=== PATIENT | male | born 1995 ===

== ENCOUNTER 2016-09-26 16:28 | Emergency (ER) | payer OTHER ==
[~2016-09-26] VITALS: Ht 170.2 cm; Wt 74.1 kg
[2016-09-26 16:53] VITALS: Ht 170.2 cm; Wt 74.1 kg
[2016-09-26] MEDS ORDERED: SODIUM CHLORIDE 0.9% 1000ML 1,000 ML IV STA (17:49)
[2016-09-26] MEDS ORDERED: SODIUM CHLORIDE 0.9% 1000ML 1,000 ML IV ONE (17:49)
[2016-09-26 18:29] LABS: BASO % 0.4 %; BASO ABS # 0.04 K/uL (0-0.2); COMPLETE YES; EOS % 0.3 %; HEMATOCRIT 43.5 % (42-52); IG% 0.2 %; LYMPH % 12.3 %; LYMPH ABS # 1.22 K/uL (1.2-3.4); MEAN CELL VOLUME 78.9 fL (80-100); MEAN CORPUSCULAR HEMOGLOBIN 27.2 pg (25-34); MEAN CORPUSCULAR HGB CONC 34.5 g/dl (32-36); MEAN PLATELET VOLUME 10.6 fL (7.4-10.4); MONO % 7.3 %; NEUT % 79.5 %; PLATELET COUNT 281 K/uL (130-400); RED BLOOD COUNT 5.51 M/uL (4.7-6.1); WHITE BLOOD COUNT 9.95 K/uL (4.8-10.8)
[2016-09-26] MEDS ORDERED: IBUP-103 PO (18:38)
[2016-09-26 18:47] LABS: BUN/CREATININE RATIO 17.3 (10-20); CALCIUM 9.3 mg/dl (8.5-10.1); CREATININE 0.85 mg/dl (0.60-1.40); POTASSIUM 3.4 mmol/L (3.5-5.1)
[2016-09-26 19:32] VITALS: BP 139/88; PULSE 87; TEMP 36.8; O2SAT 100
--- NOTE | 2016-09-28 17:57 | EMERGENCY ROOM VISIT NOTE ---
History Report prepared by Alexis: Rabia Hoover Under the Supervision of: Dr. Denny Alves M.D. First contact with patient: 17:38 Chief Complaint: DEHYDRATION Stated Complaint: VOMITING, INCREASED HEART RATE, TINGLY HANDS,DEHYD Nursing Triage Summary: "I have been vomiting all morning. My stomach feels like it is tiffany. This does not feel like my regular hangovers." per pt. 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 The patient states that after drinking a large quantity of alcohol last night he woke up this morning and states that he has had nausea and vomited 3 times since waking up and has been unable to keep water down. The patient states that he has since had generalized weakness, hands tingling and felt his heart pounding but denies chest pain. The patient states that he also had abdominal cramping he describes as tiffany. The patient states once arriving to the ED he has started to feel better. He denies any SOB, fevers, diarrhea, blood in vomit, or any recent trauma. 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 Patient denies blood in vomit, or any recent trauma, Review of Systems See HPI for pertinent positives & negatives. A total of 10 systems reviewed and were otherwise negative. Past Medical & Surgical Medical Problems: (1) No Known Active Medical Problems Old medical records were attempted to be reviewed but there are no old records at this hospital. Nurse's notes were reviewed and I agree with. Did have heart surgery as an infant but has had no problems since then or restrictions Family History Patient reports no known family medical history. Social History Smoking Status: Never Smoker Alcohol Use: occasionally Drug Use: none Marital Status: single Housing Status: lives with roommate Occupation Status: student Current/Historical Medications Scheduled PRN Ibuprofen Tab (Advil), 200 MG PO UD PRN for Pain or Fever Allergies Coded Allergies: Sulfa Antibiotics (Verified Allergy, Unknown, Unknown, 09/26/16) Physical Exam Vital Signs Date Time Temp Pulse Resp B/P Pulse Ox O2 Delivery O2 Flow Rate FiO2 09/26/16 19:32 36.8 87 16 139/88 100 09/26/16 19:31 87 16 139/88 100 Room Air 09/26/16 18:39 89 16 148/90 100 Room Air 09/26/16 16:53 36.8 103 18 169/93 99 Room Air Physical Exam General: Well developed well nourished young male in no acute distress, breathing comfortably on room air. Normal speech HEENT: Normal cephalic atraumatic. Pupils are equal round and reactive to light. Sclerae anicteric. Extraocular movements are intact. Oropharynx is pink with moist mucous membranes. No swelling of the mouth lips or tongue. Neck: Supple with a midline trachea. No meningeal signs or stiffness, no JVD or bruits. No Stridor. Chest: Clear to auscultation bilaterally. No wheezes or rhonchi. No increased work of breathing. Heart: regular rate and rhythm. Abdomen: Soft nontender, nondistended without rebound guarding or rigidity. Extremities: No cyanosis clubbing or edema. No calf tenderness or assymetry Spine/Back. Non tender to palpation. No CVA tenderness Skin: Good turgor without rashes. Neurologic exam: Cranial nerves two through 12 are intact. Motor and sensation are intact and symmetrical throughout. Medical Decision & Procedures Laboratory Results 09/26/16 18:15 Red Blood Count 5.51, Mean Corpuscular Volume 78.9, Mean Corpuscular Hemoglobin 27.2, Mean Corpuscular Hemoglobin Concent 34.5, Mean Platelet Volume 10.6, Neutrophils (%) (Auto) 79.5, Lymphocytes (%) (Auto) 12.3, Monocytes (%) (Auto) 7.3, Eosinophils (%) (Auto) 0.3, Basophils (%) (Auto) 0.4, Neutrophils # (Auto) 7.91, Lymphocytes # (Auto) 1.22, Monocytes # (Auto) 0.73, Eosinophils # (Auto) 0.03, Basophils # (Auto) 0.04 09/26/16 18:15 Test 09/26/16 18:15 White Blood Count 9.95 K/uL (4.8-10.8) Red Blood Count 5.51 M/uL (4.7-6.1) Hemoglobin 15.0 g/dL (14.0-18.0) Hematocrit 43.5 % (42-52) Mean Corpuscular Volume 78.9 fL (80-100) Mean Corpuscular Hemoglobin 27.2 pg (25-34) Mean Corpuscular Hemoglobin Concent 34.5 g/dl (32-36) Platelet Count 281 K/uL (130-400) Mean Platelet Volume 10.6 fL (7.4-10.4) Neutrophils (%) (Auto) 79.5 % Lymphocytes (%) (Auto) 12.3 % Monocytes (%) (Auto) 7.3 % Eosinophils (%) (Auto) 0.3 % Basophils (%) (Auto) 0.4 % Neutrophils # (Auto) 7.91 K/uL (1.4-6.5) Lymphocytes # (Auto) 1.22 K/uL (1.2-3.4) Monocytes # (Auto) 0.73 K/uL (0.11-0.59) Eosinophils # (Auto) 0.03 K/uL (0-0.5) Basophils # (Auto) 0.04 K/uL (0-0.2) RDW Standard Deviation 37.4 fL (36.4-46.3) RDW Coefficient of Variation 13.0 % (11.5-14.5) Immature Granulocyte % (Auto) 0.2 % Immature Granulocyte # (Auto) 0.02 K/uL (0.00-0.02) Anion Gap 7.0 mmol/L (3-11) Est Creatinine Clear Calc Drug Dose 129.6 ml/min Estimated GFR () 145.4 Estimated GFR (Non- 125.4 BUN/Creatinine Ratio 17.3 (10-20) Calcium Level 9.3 mg/dl (8.5-10.1) Total Bilirubin 0.5 mg/dl (0.2-1) Direct Bilirubin 0.1 mg/dl (0-0.2) Aspartate Amino Transf (AST/SGOT) 38 U/L (15-37) Alanine Aminotransferase (ALT/SGPT) 30 U/L (12-78) Alkaline Phosphatase 92 U/L (45-117) Total Protein 7.9 gm/dl (6.4-8.2) Albumin 4.7 gm/dl (3.4-5.0) Lipase 127 U/L (73-393) Laboratory studies as stated above per my review. Medications Administered Medications (Trade) Dose Ordered Sig/Chica Route Start Time Stop Time Status Last Admin Dose Admin Sodium Chloride 1,000 ml @ 999 mls/hr Q1H1M STAT IV 09/26/16 17:49 09/26/16 18:49 DC 09/26/16 18:26 999 MLS/HR Sodium Chloride (Nss 1000ml) 1,000 ml @ 200 mls/hr Q5H ONCE IV 09/26/16 17:49 09/26/16 19:45 DC 09/26/16 18:26 200 MLS/HR ECG Indication: palpitations, other (dehydration) Rate (beats per minute): 82 Rhythm: sinus with SA Findings: no acute ischemic change, other (Poor R wave progression) ED Course 1744: Past medical records reviewed. The patient was evaluated in room A3, and a complete history and physical examination were performed. 1748: Ordered Sodium Chloride 1,000 ml @ 200 mls/hr IV, Sodium Chloride 1,000 ml @ 999 mls/hr IV Medical Decision Differentials include, but are not limited to; dehydration, electrolyte or metabolic abnormality and arrhythmia. This patient comes in as described above. He felt unwell after drinking heavily last night. He looks well by the time he got here and is feeling better. IV access was established and he was hydrated with IV normal saline and received a couple liters of IV normal saline while he was here he looks and feels fine. He has no significant electrode or metabolic abnormalities. He is not anemic and has nothing to suggest sepsis. he's had no trauma. EKG does not suggest acute coronary syndrome or significant arrhythmia. He feels good and would like to go home this may be related to drinking. He should rest and not drink more alcohol ,drink plenty of nonalcoholic liquids. Return if: fever or chills, chest pain, worsening symptoms, any new problems or concerns. He is happy with plan and discharged to home. Impression Primary Impression: Dehydration Additional Impression: Palpitations Scribe Attestation The scribe's documentation has been prepared under my direction and personally reviewed by me in its entirety. I confirm that the note above accurately reflects all work, treatment, procedures, and medical decision making performed by me. Departure Information Dispostion Home / Self-Care Referrals No Doctor, Assigned (PCP) Forms HOME CARE DOCUMENTATION FORM, IMPORTANT VISIT INFORMATION, WORK / SCHOOL INSTRUCTIONS Patient Instructions [facility] Additional Instructions Rest Drink plenty of fluids Return if: Worsening of symptoms, fever or chills, not tolerating fluids, any new problems concerns. Problem Qualifiers
== END 2016-09-26 19:33 | disposition home or self-care (01) ==
LOC: C.EDB 16:30 → C.EDA 19:33
DX: E86.0 Dehydration (principal); R00.2 Palpitations; R11.2 Nausea with vomiting, unspecified